=== PATIENT | male | born 1990 ===

== ENCOUNTER 2020-01-18 12:31 | Inpatient (IN) ==
[2020-01-18] MEDS ORDERED: ACETAMINOPHEN 325 MG TABLET PO PRN (15:24)
[2020-01-18] MEDS ORDERED: ONDANSETRON 4 MG/2 ML VIAL IV PRN (15:24)
[2020-01-18] MEDS ORDERED: GLUCAGON 1 MG VIAL IM PRN (15:24)
[2020-01-18] MEDS ORDERED: DEXTROSE 10% 250 ML BAG IV PRN (15:24)
[2020-01-18] MEDS ORDERED: BENZONATATE 100 MG CAPSULE PO PRN (16:31)
[2020-01-18] MEDS ORDERED: NICOTINE 14 MG/24 HR PATCH TRANSDERM PRN (16:36)
[2020-01-18] MEDS: ENOXAPARIN 40 MG/0.4 ML SYRINGE SUBCUT SCH (20:34)
[2020-01-18] MEDS: cefTRIAXone 1,000 MG in SYRINGE 1 EACH IV SCH (20:35)
[2020-01-18] MEDS: guaiFENesin/DM ER 600-30 MG TABLET PO SCH (20:35)
[2020-01-18] MEDS: ASCORBIC ACID 500 MG TABLET PO SCH (20:35)
[2020-01-18] MEDS ORDERED: AZITHROMYCIN 250 MG TABLET PO ONE (21:00)
[2020-01-18] MEDS ORDERED: AZITHROMYCIN INJ 500 MG in SODIUM CHLORIDE 0.9% 250 ML IV SCH (21:00)
[2020-01-19 05:30] LABS: Basophils # 0.1 10*3/uL (0.0-0.2); Basophils % 0.5 % (0.0-0.8); Eosinophils # 0.2 10*3/uL (0.0-0.87); Eosinophils % 2.1 % (0.00-10.9); Hematocrit 37.4 VOL% (42.0-52.0); Hemoglobin 12.4 GM/DL (14.0-18.0); Immature Granulocytes % 5.7 %; Immature Granulocytes Absolute 0.52 #; Lymphocytes # 1.6 10*3/uL (1.4-4.0); Lymphocytes % 17.1 % (21.2-54.2); Mean Corpuscular HGB Conc 33.2 GM/DL (32-36); Mean Corpuscular Volume 98.7 FL (87-102); Monocytes % 12.6 % (1.7-12.7); Platelet Count 268 T/CUMM (130-400); Red Blood Count 3.79 MC/CUMM (3.8-5.5); Red Cell Distribution Width 15.2 % (9.3-17.3); White Blood Count 9.1 T/CUMM (4-12)
[2020-01-19 05:41] LABS: Calcium 8.3 MG/DL (8.5-10.1); Osmolality,Calculated 266.1 MOS/KG (273-304)
[2020-01-19 05:56] LABS: Eosinophils 1 % (0-10); Hypochromasia 1+; Lymphocytes 13 % (20-55); Platelet Estimate Adequate; Segmented Neutrophils 69 % (50-85); Total Cells Counted 100
[2020-01-19] MEDS: ASCORBIC ACID 500 MG TABLET PO SCH ×2 (08:54→20:11)
[2020-01-19] MEDS: guaiFENesin/DM ER 600-30 MG TABLET PO SCH ×2 (08:54→20:11)
[2020-01-19] MEDS: ZINC GLUCONATE 50 MG TABLET PO SCH (08:54)
[2020-01-19] MEDS: PANTOPRAZOLE 40 MG TABLET PO SCH (08:54)
[2020-01-19] MEDS: ENOXAPARIN 40 MG/0.4 ML SYRINGE SUBCUT SCH (20:10)
[2020-01-19] MEDS: AZITHROMYCIN 250 MG TABLET PO SCH (20:11)
[2020-01-19] MEDS: cefTRIAXone 1,000 MG in SYRINGE 1 EACH IV SCH (20:13)
[2020-01-20 04:52] LABS: Basophils # 0.1 10*3/uL (0.0-0.2); Basophils % 0.6 % (0.0-0.8); Eosinophils # 0.2 10*3/uL (0.0-0.87); Eosinophils % 2.7 % (0.00-10.9); Hematocrit 34.7 VOL% (42.0-52.0); Hemoglobin 11.7 GM/DL (14.0-18.0); Immature Granulocytes Absolute 0.51 #; Lymphocytes # 1.4 10*3/uL (1.4-4.0); Lymphocytes % 16.9 % (21.2-54.2); Mean Corpuscular HGB Conc 33.7 GM/DL (32-36); Mean Corpuscular Volume 97.2 FL (87-102); Mean Platelet Volume 11.1 FL (9.6-12.0); Monocytes % 11.5 % (1.7-12.7); Neutrophils % 62.3 % (38.7-73.9); Platelet Count 234 T/CUMM (130-400); Red Blood Count 3.57 MC/CUMM (3.8-5.5); Red Cell Distribution Width 15.5 % (9.3-17.3); White Blood Count 8.5 T/CUMM (4-12)
[2020-01-20 05:02] LABS: ABG HCO3 25.2 MMOL/L (20-26); ABG Oxygen Saturation 93.3 % (95-100); ABG PCO2 36.8 MM HG (35-48); ABG PH 7.439 (7.35-7.45); ABG PO2 69.6 MM HG (80-95); ABG TCO2 22.1 MMOL/L (23-27); Allen Test Positive
[2020-01-20 05:32] LABS: Eosinophils 1 % (0-10); Lymphocytes 22 % (20-55); Segmented Neutrophils 59 % (50-85); Total Cells Counted 100
[2020-01-20 05:33] LABS: Hypochromasia 1+; Platelet Estimate Adequate
[2020-01-20 05:36] LABS: Calcium 8.6 MG/DL (8.5-10.1); Osmolality,Calculated 264.2 MOS/KG (273-304)
[2020-01-20] MEDS: PANTOPRAZOLE 40 MG TABLET PO SCH (09:22)
[2020-01-20] MEDS: guaiFENesin/DM ER 600-30 MG TABLET PO SCH ×2 (09:34→20:45)
[2020-01-20] MEDS: ASCORBIC ACID 500 MG TABLET PO SCH ×2 (09:35→20:45)
[2020-01-20] MEDS: CHOLECALCIFEROL 1,000 UNIT TABLET PO SCH (09:35)
[2020-01-20] MEDS: POTASSIUM CHLORIDE 20 MEQ TABLET PO PRN ×3 (14:52→18:47)
[2020-01-20] MEDS: ENOXAPARIN 40 MG/0.4 ML SYRINGE SUBCUT SCH (20:45)
[2020-01-20] MEDS: cefTRIAXone 1,000 MG in SYRINGE 1 EACH IV SCH (20:45)
[2020-01-20] MEDS: AZITHROMYCIN 250 MG TABLET PO SCH (20:45)
[2020-01-21 04:25] LABS: ABG Base Excess -0.2 MMOL/L (-2.5-2.5); ABG HCO3 24.1 MMOL/L (20-26); ABG Oxygen Saturation 92.2 % (95-100); ABG PCO2 33.9 MM HG (35-48); ABG PH 7.444 (7.35-7.45); ABG PO2 65.2 MM HG (80-95); ABG TCO2 20.7 MMOL/L (23-27); Allen Test Positive
[2020-01-21 07:17] LABS: Basophils # 0.1 10*3/uL (0.0-0.2); Basophils % 0.5 % (0.0-0.8); Eosinophils # 0.2 10*3/uL (0.0-0.87); Eosinophils % 1.9 % (0.00-10.9); Hematocrit 35.3 VOL% (42.0-52.0); Hemoglobin 11.8 GM/DL (14.0-18.0); Immature Granulocytes % 5.6 %; Immature Granulocytes Absolute 0.55 #; Lymphocytes # 1.4 10*3/uL (1.4-4.0); Lymphocytes % 14.7 % (21.2-54.2); Mean Corpuscular HGB Conc 33.4 GM/DL (32-36); Mean Corpuscular Volume 96.7 FL (87-102); Mean Platelet Volume 11.1 FL (9.6-12.0); Monocytes % 10.7 % (1.7-12.7); Neutrophils % 66.6 % (38.7-73.9); Platelet Count 259 T/CUMM (130-400); Red Blood Count 3.65 MC/CUMM (3.8-5.5); Red Cell Distribution Width 15.9 % (9.3-17.3); White Blood Count 9.8 T/CUMM (4-12)
[2020-01-21 07:33] LABS: Calcium 8.4 MG/DL (8.5-10.1); Osmolality,Calculated 262.4 MOS/KG (273-304)
[2020-01-21 08:10] LABS: Lymphocytes 10 % (20-55); Metamyelocytes 1 %; Myelocytes 1 %; Ovalocytes Few; Polychromasia Slight; Segmented Neutrophils 77 % (50-85); Total Cells Counted 100
[2020-01-21 08:11] LABS: Platelet Estimate Normal
[2020-01-21] MEDS: guaiFENesin/DM ER 600-30 MG TABLET PO SCH ×2 (08:35→20:04)
[2020-01-21] MEDS: ASCORBIC ACID 500 MG TABLET PO SCH ×2 (08:35→20:04)
[2020-01-21] MEDS: ZINC GLUCONATE 50 MG TABLET PO SCH (08:35)
[2020-01-21] MEDS: CHOLECALCIFEROL 1,000 UNIT TABLET PO SCH (08:35)
[2020-01-21] MEDS: cefTRIAXone 1,000 MG in SYRINGE 1 EACH IV SCH (20:03)
[2020-01-21] MEDS: ENOXAPARIN 40 MG/0.4 ML SYRINGE SUBCUT SCH (20:04)
[2020-01-21] MEDS: AZITHROMYCIN 250 MG TABLET PO SCH (20:04)
[2020-01-22 04:21] LABS: ABG Base Excess -0.7 MMOL/L (-2.5-2.5); ABG HCO3 22.9 MMOL/L (20-26); ABG Oxygen Saturation 94.2 % (95-100); ABG PCO2 34.2 MM HG (35-48); ABG PH 7.443 (7.35-7.45); ABG TCO2 23.9 MMOL/L (23-27); Allen Test Positive; Pt O2 Delivery Device Other
[2020-01-22] MEDS: guaiFENesin/DM ER 600-30 MG TABLET PO SCH ×2 (08:30→20:30)
[2020-01-22] MEDS: ASCORBIC ACID 500 MG TABLET PO SCH ×2 (08:30→20:30)
[2020-01-22] MEDS: CHOLECALCIFEROL 1,000 UNIT TABLET PO SCH (08:30)
[2020-01-22] MEDS: ENOXAPARIN 80 MG/0.8 ML SYRINGE SUBCUT SCH ×2 (12:10→22:03)
[2020-01-22] MEDS: cefTRIAXone 1,000 MG in SYRINGE 1 EACH IV SCH (20:30)
[2020-01-22] MEDS: AZITHROMYCIN 250 MG TABLET PO SCH (20:30)
[2020-01-23 03:18] LABS: ABG Base Excess 0.2 MMOL/L (-2.5-2.5); ABG HCO3 24.6 MMOL/L (20-26); ABG PCO2 35.7 MM HG (35-48); ABG PH 7.436 (7.35-7.45); ABG TCO2 21.4 MMOL/L (23-27)
[2020-01-23 06:52] LABS: Basophils # 0.1 10*3/uL (0.0-0.2); Basophils % 0.4 % (0.0-0.8); Eosinophils # 0.1 10*3/uL (0.0-0.87); Eosinophils % 0.7 % (0.00-10.9); Hematocrit 33.8 VOL% (42.0-52.0); Hemoglobin 11.4 GM/DL (14.0-18.0); Immature Granulocytes % 1.7 %; Lymphocytes # 1.3 10*3/uL (1.4-4.0); Lymphocytes % 10.7 % (21.2-54.2); Mean Corpuscular HGB Conc 33.7 GM/DL (32-36); Mean Corpuscular Volume 96.3 FL (87-102); Monocytes % 8.6 % (1.7-12.7); Neutrophils % 77.9 % (38.7-73.9); Platelet Count 199 T/CUMM (130-400); Red Blood Count 3.51 MC/CUMM (3.8-5.5); Red Cell Distribution Width 16.5 % (9.3-17.3); White Blood Count 11.7 T/CUMM (4-12)
[2020-01-23 07:24] LABS: Calcium 8.7 MG/DL (8.5-10.1); Osmolality,Calculated 262.4 MOS/KG (273-304)
[2020-01-23 08:04] LABS: Hypochromasia 1+
[2020-01-23] MEDS: ASCORBIC ACID 500 MG TABLET PO SCH ×2 (08:45→20:09)
[2020-01-23] MEDS: ZINC GLUCONATE 50 MG TABLET PO SCH (08:45)
[2020-01-23] MEDS: CHOLECALCIFEROL 1,000 UNIT TABLET PO SCH (08:45)
[2020-01-23] MEDS: guaiFENesin/DM ER 600-30 MG TABLET PO SCH ×2 (08:45→20:09)
[2020-01-23] MEDS: ENOXAPARIN 80 MG/0.8 ML SYRINGE SUBCUT SCH ×2 (14:07→22:52)
[2020-01-24 05:30] LABS: Basophils # 0.1 10*3/uL (0.0-0.2); Basophils % 0.5 % (0.0-0.8); Eosinophils # 0.1 10*3/uL (0.0-0.87); Eosinophils % 0.7 % (0.00-10.9); Hematocrit 32.4 VOL% (42.0-52.0); Hemoglobin 11.1 GM/DL (14.0-18.0); Immature Granulocytes % 1.2 %; Immature Granulocytes Absolute 0.14 #; Lymphocytes # 1.4 10*3/uL (1.4-4.0); Lymphocytes % 12.4 % (21.2-54.2); Mean Corpuscular HGB Conc 34.3 GM/DL (32-36); Mean Platelet Volume 11.7 FL (9.6-12.0); Monocytes % 10.3 % (1.7-12.7); Neutrophils % 74.9 % (38.7-73.9); Platelet Count 205 T/CUMM (130-400); Red Blood Count 3.41 MC/CUMM (3.8-5.5); Red Cell Distribution Width 16.5 % (9.3-17.3); White Blood Count 11.3 T/CUMM (4-12)
[2020-01-24 05:48] LABS: Albumin 2.3 G/DL (3.4-5.0); Calcium 8.7 MG/DL (8.5-10.1); Osmolality,Calculated 260.5 MOS/KG (273-304)
[2020-01-24 06:08] LABS: Hypochromasia 1+; Platelet Estimate Adequate
[2020-01-24] MEDS: ENOXAPARIN 80 MG/0.8 ML SYRINGE SUBCUT SCH ×2 (09:40→21:20)
[2020-01-24] MEDS: ASCORBIC ACID 500 MG TABLET PO SCH ×2 (09:41→21:21)
[2020-01-24] MEDS: CHOLECALCIFEROL 1,000 UNIT TABLET PO SCH (09:41)
[2020-01-24] MEDS: guaiFENesin/DM ER 600-30 MG TABLET PO SCH ×2 (09:41→21:21)
[2020-01-24 10:19] LABS: Bilirubin,Direct 13.35 MG/DL (0.0-0.20)
[2020-01-24 10:21] LABS: Bilirubin,Total 17.2 MG/DL (0.2-1.0)
[2020-01-24 11:55] LABS: Hepatitis B Core IgM Quant 0.13 Index; Hepatitis B Surface Ag Quant 0.57 Index; Hepatitis B Surface Ag Result Negative (Negative); Hepatitis C Virus Ab Quant 0.46 Index; Hepatitis C Virus Ab Result Negative (Negative)
[2020-01-25 05:40] LABS: Basophils # 0.1 10*3/uL (0.0-0.2); Basophils % 0.5 % (0.0-0.8); Eosinophils # 0.1 10*3/uL (0.0-0.87); Hemoglobin 11.2 GM/DL (14.0-18.0); Immature Granulocytes % 1.1 %; Immature Granulocytes Absolute 0.12 #; Lymphocytes # 1.3 10*3/uL (1.4-4.0); Lymphocytes % 11.6 % (21.2-54.2); Mean Corpuscular HGB Conc 33.9 GM/DL (32-36); Mean Corpuscular Volume 96.8 FL (87-102); Mean Platelet Volume 12.4 FL (9.6-12.0); Monocytes % 10.8 % (1.7-12.7); Platelet Count 188 T/CUMM (130-400); Red Blood Count 3.41 MC/CUMM (3.8-5.5); Red Cell Distribution Width 16.9 % (9.3-17.3)
[2020-01-25 05:47] LABS: INR 1.3; PT Patient Result 13.7 SECS (9.8-11.9)
[2020-01-25 06:05] LABS: Hypochromasia 1+; Platelet Estimate Adequate
[2020-01-25 06:08] LABS: Calcium 8.7 MG/DL (8.5-10.1); Osmolality,Calculated 264.2 MOS/KG (273-304)
[2020-01-25 06:40] LABS: Albumin 2.4 G/DL (3.4-5.0); Bilirubin,Direct 15.26 MG/DL (0.0-0.20); Bilirubin,Indirect 4.9 MG/DL (0.0-1.0); Total Protein 6.6 G/DL (6.4-8.3)
[2020-01-25 06:44] LABS: Bilirubin,Total 20.2 MG/DL (0.2-1.0)
[2020-01-25] MEDS: guaiFENesin/DM ER 600-30 MG TABLET PO SCH ×2 (08:32→20:55)
[2020-01-25] MEDS: CHOLECALCIFEROL 1,000 UNIT TABLET PO SCH (08:33)
[2020-01-25] MEDS: ASCORBIC ACID 500 MG TABLET PO SCH ×2 (08:33→20:55)
[2020-01-25] MEDS: ENOXAPARIN 40 MG/0.4 ML SYRINGE SUBCUT SCH ×2 (11:38→20:55)
[2020-01-26] MEDS: guaiFENesin/DM ER 600-30 MG TABLET PO SCH (08:03)
[2020-01-26] MEDS: ENOXAPARIN 40 MG/0.4 ML SYRINGE SUBCUT SCH (08:03)
[2020-01-26] MEDS: ASCORBIC ACID 500 MG TABLET PO SCH (08:03)
[2020-01-26] MEDS: CHOLECALCIFEROL 1,000 UNIT TABLET PO SCH (08:03)
[2020-01-26 10:40] LABS: Albumin 2.3 G/DL (3.4-5.0); Calcium 8.3 MG/DL (8.5-10.1); Osmolality,Calculated 269.8 MOS/KG (273-304); Total Protein 6.5 G/DL (6.4-8.3)
[2020-01-26 10:45] LABS: Albumin 2.2 G/DL (3.4-5.0); Bilirubin,Indirect 3.4 MG/DL (0.0-1.0); Total Protein 7.1 G/DL (6.4-8.3)
[2020-01-26 10:46] LABS: Bilirubin,Total 20.5 MG/DL (0.2-1.0)
[2020-01-26 10:48] LABS: Bilirubin,Total 20.4 MG/DL (0.2-1.0)
[2020-01-26 16:16] VITALS: BP 128/56
== END 2020-01-26 17:52 | disposition home health service (06) | DRG 177 ==
LOC: N.2E → SUATTDRO 13:50 → N.2W 01-20 08:57 → N.2E 01-26 14:06
PROVIDERS: ADMIT Nurse Practitioner Family; ATTEND Internal Medicine